=== PATIENT | female | born 1960 | race Caucasian/White ===

== ENCOUNTER → 2016-09-16 | Outpatient (CLI) | payer MEDICARE ==
--- NOTE | 2016-09-16 16:33 | RAD ---
Right knee, 2 views, 09/16/2016: History: Knee pain There is moderate spurring at the knee joint and at the patellofemoral articulation. No fracture or dislocation is identified. No definite joint effusion is seen. IMPRESSION: 1. Moderate degenerative change. 2. No acute bony abnormality is detected.
== END | disposition home or self-care (01) ==
LOC: RAD 13:14
PROVIDERS: ATTEND Physician Assistant
DX: M17.11 Unilateral primary osteoarthritis, right knee (principal); M76.891 Other specified enthesopathies of right lower limb, excluding foot
CPT/HCPCS: 73560

== ENCOUNTER → 2016-09-27 | Outpatient (CLI) | payer MEDICARE ==
--- NOTE | 2016-09-27 13:46 | KCIC ---
MR of the right knee Indication: Right knee pain and effusion for about 6 months. Previous meniscal repair. Technique: The standard multiplanar sequences are obtained. Findings: Medial meniscus: Mild distortion and abnormal signal compatible with a mild degenerative tear. Lateral meniscus: Distortion and signal at the anterior horn compatible with a tear. Anterior cruciate ligament: Irregular and heterogeneous, may be due to mucinous degeneration. No definite rupture or laxity. 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 Posterior cruciate ligament: Intact Medial collateral ligament: Intact. Iliotibial band: Intact. Posterolateral structures: Fibular collateral ligament, biceps tendon and popliteus tendon are intact. Extensor mechanism: Intact. Fluid: Small joint effusion. Articular cartilage -patellofemoral joint: Severe chondromalacia with marginal osteophytes. -medial compartment: Moderate to severe chondromalacia. -lateral compartment: Chondromalacia, severe at the posterior weightbearing aspect. Bones: No significant lesion or acute fracture. Soft tissue: No significant Carrera's cyst. Subcutaneous varicosities are identified. Impression: 1. Medial meniscal tear. 2. Anterior horn lateral meniscal tear. 3. Heterogeneity of the anterior cruciate ligament, likely due to degeneration or impingement. No evidence of an acute through and through rupture. Intercondylar notch stenosis. 4. Severe primary osteoarthritis. Electronically signed by: Porfirio Frank MD (09/27/2016 1:43 PM) [id number]
== END | disposition home or self-care (01) ==
LOC: KCIC MRI 13:04
PROVIDERS: ATTEND Physician Assistant
DX: M25.561 Pain in right knee (principal); M25.461 Effusion, right knee
CPT/HCPCS: 73721

== ENCOUNTER → 2016-10-31 | Outpatient (CLI) | payer MEDICARE ==
--- NOTE | 2016-11-02 10:55 | RAD ---
DATE: 10/31/2016 EXAM: MAMMO CATERINA SCREENING BILATERAL Bilateral digital screening mammography to include digital breast tomosynthesis (3D mammography) HISTORY: Screening study. COMPARISON 07/22/2015 This study was interpreted with the benefit of Computerized Aided Detection (CAD). The breast parenchyma is heterogeneously dense, which could reduce sensitivity of mammography. Breast parenchyma level C. FINDINGS: Digital MLO and CC mammograms of both breasts were obtained. Additionally digital breast tomosynthesis (3D mammography) images of both breasts in the MLO and CC projections were performed. Comparison study is dated 07/22/2015. These were performed at [facility]. The breast parenchyma is heterogeneously dense which can obscure a lesion on mammography (breast density code C). No spiculated mass is seen. No malignant appearing calcification or area of architectural distortion is noted. Benign-appearing calcifications are seen within both breasts. Digital breast tomosynthesis images demonstrate no spiculated mass or malignant appearing calcification. Since the previous examination there has been no significant interval change. IMPRESSION: . BI-RADS Category 1, negative. There is no mammographic evidence of malignancy. Routine yearly screening mammography is recommended for follow-up. BI-RADS CATEGORY: 1 NEGATIVE RECOMMENDED FOLLOW-UP: 12M 12 MONTH FOLLOW-UP PQRS compliance statement: Patient information was entered into a reminder system with a target due date 10/31/2017 for the next mammogram. Mammography is a sensitive method for finding small breast cancers, but it does not detect them all and is not a substitute for careful clinical examination. A negative mammogram does not negate a clinically suspicious finding and should not result in delay in biopsying a clinically suspicious abnormality. "Our facility is accredited by the [employer] Mammography Program."
== END | disposition home or self-care (01) ==
LOC: KCIC MAMMO 11:39
PROVIDERS: ATTEND Physician Assistant
DX: Z12.31 Encounter for screening mammogram for malignant neoplasm of breast (principal)
CPT/HCPCS: 77063; G0202; 77067